=== PATIENT | female | born 1995 | race American Indian/Alaskan Native ===

== ENCOUNTER 2017-07-20 00:22 | Emergency (ER) | payer OTHER ==
[~2017-07-20] VITALS: Ht 160 cm; Wt 90.7 kg
[~2017-07-20 00:22] MED LIST: ALBUTEROL SULF8.5 GM INH; KEFLEX500 MG PO; PERCOCET 7.5-31 EACH PO; PYRIDIUM200 MG PO
== END 2017-07-20 02:05 | disposition home or self-care (01) ==
LOC: ED 00:22
DX: B34.9 Viral infection, unspecified (principal); J45.909 Unspecified asthma, uncomplicated; Z90.49 Acquired absence of other specified parts of digestive tract; Z79.899 Other long term (current) drug therapy
CPT/HCPCS: 80053; 81001; 84703; 85025; 85610; 85730; 96360; 99283; J7030

== ENCOUNTER 2018-07-30 17:01 | Emergency (ER) | payer BC, OTHER ==
[~2018-07-30] VITALS: Ht 160 cm; Wt 97.5 kg
[2018-07-30] MEDS ORDERED: HYDROXYZINE PAM25 MG PO (17:10)
[2018-07-30] MEDS ORDERED: CITALOPRAM HBR20 MG PO (17:10)
[2018-07-30] MEDS ORDERED: AMOXICILLIN500 MG PO (17:26)
== END 2018-07-30 17:46 | disposition home or self-care (01) ==
LOC: ED 17:01
DX: H66.92 Otitis media, unspecified, left ear (principal); J06.9 Acute upper respiratory infection, unspecified; J40 Bronchitis, not specified as acute or chronic; Z79.899 Other long term (current) drug therapy; J45.909 Unspecified asthma, uncomplicated
CPT/HCPCS: 99283